=== PATIENT | male | born 1960 | race Caucasian/White ===

== ENCOUNTER → 2016-07-28 | Day surgery (SDC) | payer OTHER ==
[~2016-07-28] MED LIST: AMARYL PO; ASPIRIN81 M2 PO; DAYQUIL; FLEXERIL PO; FLOMAX0.4 M1 PO; FLOMAX0.4 MG PO; GLUCOPHAGE500 M1 PO; HYDROCHLOROTHIA25 MG PO; LIPITOR40 MG PO; MEDROL DOSE PAK; NAPROXEN PO; NIQUIL; PERCOCET 51 UDTAB 5/ PO; PRILOSEC PO; WATER PILL
--- NOTE | ~2016-07-28 | OR ---
Unit #: [id number] #: [id number] Patient: LENA LU [id number] [address] [place], [place] [address] [id number] O MR#: [id number] NAME: LENA LU ROOM: Date of Procedure: 07/28/2016 Admission Date: 07/28/2016 Surgeon: Juan Antonio Baez M.D. : 1960 Attending Physician: Juan Antonio Baez M.D. Primary Care Physician: Jules Calvin M.D. OPERATIVE REPORT PREOPERATIVE DIAGNOSIS Left ureteral and multiple renal stones. POSTOPERATIVE DIAGNOSIS Left ureteral and multiple renal stones. PROCEDURES PERFORMED Cystoscopy, left rigid and flexible ureteroscopy, holmium laser lithotripsy, basket extraction of fragments, placement of double-J ureteral stent with external tether. ANESTHESIA General. INDICATIONS FOR PROCEDURE This 55-year-old man has an 8 mm stone obstructing the upper left ureter and he has multiple intrarenal stones. DESCRIPTION OF PROCEDURE The patient was given satisfactory general anesthesia after preoperative antibiotics. He was positioned in dorsal lithotomy and the genitalia were prepped and draped. A 21-Tongan rigid cystoscope was introduced with a 30-degree lens and video noting mild BPH and a normal bladder. The orifices were symmetric. The left ureteral orifice was entered with a Pollack catheter and a retrograde performed confirming a faint calcification in the mid abdomen to be within the ureter, but not markedly obstructing. A Sensor guidewire was passed through the Pollack catheter and then a dual-lumen catheter was used to place a second guidewire over which the rigid ureteroscope was passed. This showed no stone in the ureter up to the level of the pelvic brim. I then passed a flexible ureteroscope the remainder of the way over a second wire to the level of the stone, which was then treated with a 365 nanometer laser fiber starting initially low settings, but increasing to a power of 1.4 and 10 repetitions per second as it was a very hard stone. After this was broken free with no local trauma, several of the fragments back migrated to the kidney where they were further pulverized. A methodical search through the kidney then revealed 2 stones in the upper pole, which were lasered a lateral pole stone and a lower pole stone. Basket was used intermittently to reposition stones, so as to avoid using a smaller fiber. After all significant fragments had been eliminated, the largest was basket extracted to the distal ureter, where it was further lasered and extracted. A 28 x 6 double-J stent was then placed with a tether. The Unit #: [id number] #: [id number] Patient: LENA LU bladder drained and a Uro-jet applied and secured to the dorsum of the penis. The patient will be followed in 6 days and he is given Cipro, tamsulosin, and Percocet. Dictated by... Dee Goins/mika TD: 07/28/2016 22:30 JOB #: [id number] OPERATIVE REPORT Page 1 of 1 X Juan Antonio Baez MD PROCEDURE OPERATIVE NOTE
--- NOTE | ~2016-07-28 | EKG ---
PATIENT: LENA LU UNIT #: [id number] Ventricular Rate: 95 BPM Atrial Rate: 95 BPM P-R Interval: 164 ms QRS Duration: 96 ms Q-T Interval: 358 ms QTC Calculation(Bezet): 449 ms P [place]: 49 degrees Calculated R [place]: 8 degrees Calculated T [place]: 5 degrees Diagnosis Line: Normal sinus rhythm Diagnosis Line: Minimal voltage criteria for LVH, may be normal Diagnosis Line: variant Diagnosis Line: Nonspecific T wave abnormality Diagnosis Line: Borderline ECG Diagnosis Line: No previous ECGs available Diagnosis Line: Confirmed by JUNI NOYOLA MD ([id number]) on 07/28/2016 Diagnosis Line: 10:47:31 PM INTERPRETING MD: JAZMÍN RAMOS
[2016-07-28 12:14] LABS: BASOPHIL# 0.2 X10e3 (0-0.3); BASOPHIL% 1.8 % (0-2.5); DIFF IND NO; EOSINOPHIL# 0.4 X10e3 (0-0.7); EOSINOPHIL% 4.4 % (0.0-7.0); HEMATOCRIT 45.8 % (38.0-50.0); HEMOGLOBIN 15.3 gm/dL (13.0-16.0); LYMPHOCYTE# 2.6 X10e3 (1.0-3.5); MEAN CELL VOLUME 86.4 FL (83-96); MEAN CORPUSCULAR HEMOGLOBIN 28.9 PG (28-34); MEAN CORPUSCULAR HGB CONC 33.4 g/dL (30-36); MONOCYTE# 0.9 X10e3 (0-1.0); NEUTROPHIL# 5.8 X10e3 (1.5-7.1); NEUTROPHIL% 58.8 % (40-75); PLATELET COUNT 273 X10e3 (140-420); RED CELL DISTRIBUTION WIDTH 13.8 % (11.0-15.5); WHITE BLOOD COUNT 9.9 X10e3 (4.0-10.5)
[2016-07-28 12:39] LABS: BUN/CREATININE RATIO 13.33; CALCIUM SERUM 9.5 mg/dL (8.4-10.2); CREATININE SERUM 1.5 mg/dL (0.6-1.4); GLOM FILT RATE Estimated 52.4 mL/min (>60); POTASSIUM 3.5 mmol/L (3.5-5.1)
== END | disposition home or self-care (01) ==
LOC: CSUR 11:17
PROVIDERS: Urology
DX: N20.2 Calculus of kidney with calculus of ureter (principal); I10 Essential (primary) hypertension; E11.9 Type 2 diabetes mellitus without complications; J45.909 Unspecified asthma, uncomplicated; K21.9 Gastro-esophageal reflux disease without esophagitis; Z79.899 Other long term (current) drug therapy; Z98.890 Other specified postprocedural states
CPT/HCPCS: 80048; 82365; 82947; 85025; 88300; 93005; C1758; C2617; J1956; J2250; J2405; J3010